=== PATIENT | male | born 1995 | race Two or more races ===

== ENCOUNTER 2020-12-27 16:00 | Emergency (ER) | payer OTHER ==
[~2020-12-27] VITALS: Ht 172.7 cm; Wt 82.0 kg
[2020-12-27] MEDS ORDERED: LIDOCAINE-MPF 1%, 5ML ONE (16:07)
[2020-12-27 16:10] VITALS: BP 105/66
[2020-12-27] MEDS ORDERED: BACITRACIN ZINC OINT 500U/GM, 0.9 GM ONE (17:42)
--- NOTE | 2020-12-27 18:26 | NUR ---
DC EDUCATION PROVIDED, PT DEMONSTRATES UNDERSTANDING. PT AMBULATED STEADILY TO DC WITH RN
== END 2020-12-27 18:28 | disposition home or self-care (01) ==
LOC: ED 18:23
DX: S61.511A Laceration without foreign body of right wrist, initial encounter (principal); W25.XXXA Contact with sharp glass, initial encounter; Y93.89 Activity, other specified; Y92.89 Other specified places as the place of occurrence of the external cause; Y99.0 Civilian activity done for income or pay
CPT/HCPCS: 12032; 99283; 99284